=== PATIENT | male | born 2000 | race Caucasian/White ===

== ENCOUNTER 2021-12-16 23:44 | Emergency (ER) | payer OTHER ==
[~2021-12-16] VITALS: Ht 170.2 cm; Wt 70.3 kg
[2021-12-17] MEDS ORDERED: Percocet 5-3251 EACH PO (01:26)
== END 2021-12-17 01:47 | disposition home or self-care (01) ==
LOC: ER 23:44
DX: S66.921A Laceration of unspecified muscle, fascia and tendon at wrist and hand level, right hand, initial encounter (principal); Z23 Encounter for immunization; X58.XXXA Exposure to other specified factors, initial encounter
CPT/HCPCS: 12002; 73130; 90471; 90714; 96374; 96375; 99284-25; A9270; J1885; J3010